=== PATIENT | female | born 1960 | race Caucasian/White ===

== ENCOUNTER → 2019-04-08 | Outpatient (CLI) | payer OTHER ==
[~2019-04-08] MED LIST: FLEXERIL PO; FOLIC ACID1 MG PO; METHOTREXATE 22.5 MG PO; PREMARIN0.3 MG PO; PRILOSEC OTC20 MG PO
== END | disposition home or self-care (01) ==
LOC: LITH 06:15
DX: N20.0 Calculus of kidney (principal); M10.9 Gout, unspecified; M79.7 Fibromyalgia; Z87.19 Personal history of other diseases of the digestive system; Z91.040 Latex allergy status; Z88.8 Allergy status to other drugs, medicaments and biological substances; Z79.899 Other long term (current) drug therapy; Z98.890 Other specified postprocedural states